=== PATIENT | male | born 1990 | race Caucasian/White ===

== ENCOUNTER 2020-12-12 16:02 | Emergency (ER) | payer SELFPAY ==
[2020-12-12 16:18] VITALS: BP 117/68; PULSE 119; RESP 18; TEMP 37.6; O2SAT 98; BMI 29.6
--- NOTE | 2020-12-12 16:48 | ED_ITS ---
HPI - Fever General: Chief Complaint: Fever Stated Complaint: FEVER/ACHES/HALLUCINATIONS Time Seen by Provider: 12/12/20 16:47 History of Present Illness: HPI Narrative: Patient is worried he might have tick fever. He said he has had multiple tick bites here recently. None of the ticks have been on more than 12 hours. Patient denies Covid but he says his mom is positive for Covid but he said he is not really been around her. Started with a severe headache last night and then fever and chills today no loss of taste or smell. MD elicited complaint: fever Onset (ago): hour(s) Context: sick contacts (Mother has Covid, recent tick bites) Associated symptoms: Reports chills, confusion (With fever), headache(s) and myalgias; Deny abdominal pain, chest pain, extremity pain, nasal congestion, nausea or vomiting Treatments prior to arrival fever: acetaminophen Review of Systems Const: Reports: fever(s) and chills Eyes: Denies: change in vision or blurry vision ENMT: Denies: throat pain or nasal congestion Card: Denies: chest pain or dyspnea on exertion Resp: Denies: dyspnea, productive cough or non-productive cough GI: Denies: abdominal pain, nausea or vomiting : Denies: difficulty urinating Musc: Reports: other (Muscle aches); Denies: extremity pain Skin/Breast: Denies: rash Neuro: Reports: headache(s) and confusion (With fever) Psych: Denies: anxiety or depression Wilmar/Lymph: Denies: easy bruising Physical Exam Const: COMMON NORMALS: no acute distress, average body habitus and patient oriented x3 HENMT: COMMON NORMALS: normocephalic HEAD & SCALP: normal to inspection and normocephalic FACE & SINUS: normal facial exam Eye: COMMON NORMALS: conjunctivae normal GENERAL EYE: appearance normal, both eyes and all related structures CONJUNCTIVA: Yes conjunctivae normal Neck/C-Spine: COMMON NORMALS: no JVD Chest: COMMONS NORMALS: normal inspection of the chest Resp: COMMON NORMALS: normal respiratory effort Cardio: COMMON NORMALS: no JVD and regular rhythm RATE: tachycardic RHYTHM: regular rhythm GI: COMMON NORMALS: Normal to inspection, nondistended, normoactive bowel sounds present Extremity: COMMON NORMALS: normal to inspection and full ROM Neuro: COMMON NORMALS: patient oriented x3 Course Vital Signs: Vital signs: Vital Signs Temperature 99.6 F 12/12/20 16:18 Pulse Rate 119 H 12/12/20 16:18 Respiratory Rate 18 12/12/20 16:18 Blood Pressure 117/68 12/12/20 16:18 Pulse Oximetry 98 12/12/20 16:18 MDM - Fever MDM Narrative: Medical decision making narrative: Patient notified he was tested positive for Covid. Patient self isolate follow-up if worsening symptoms with primary care or can return here. Lab Data: Labs: Lab Results 12/12/20 Range/Units 16:50 SARS-CoV-2 Ag (Rap id) Positive H (Negative) Discharge Plan Discharge Patient Disposition: Home Clinical Impression: Close exposure to 2018-nCoV Tick bite Qualifiers: Encounter type: initial encounter Qualified Code(s): W57.XXXA - Bitten or stung by nonvenomous insect and other nonvenomous arthropods, initial encounter Condition: Stable Prescriptions: New doxycycline hyclate 100 mg capsule 100 mg PO BID 10 Days Qty: 20 RF: 0 Discharge Orders: Discharge ED (Routine); Ordered 12/12/20 Ordered By: Messi Cam Discharge Diet: Usual diet Discharge Activity: Increase activity as tolerated Patient Instructions: Tick Bite (ED), Viral Syndrome (ED) Activity Restrictions/Additional Instructions: Follow-up with medical provider as directed. Take medications as prescribed. Return to the ER or your medical provider if condition worsens. Please read and understand discharge instructions. If any questions ask please. Coding Level of Care Code ED Tissue Recovery Technician for Eliseo Fwmarcio Exam Comprehensive
[2020-12-12] MEDS: doxycycline 100 mg Tablet PO (17:07)
[2020-12-12] MEDS: ketorolac 10 mg Tablet PO (17:07)
[2020-12-12 17:14] LABS: SARS Covid-2 Antigen Positive (Negative)
[2020-12-15 09:22] LABS: Lyme AB Screen <0.90 index
[2020-12-16 17:36] LABS: E. Chaffeensis AB IGG <1:64; E. Chaffeensis AB IGM <1:20; RMSF IGG NOT DETECTED; RMSF IGM NOT DETECTED
== END 2020-12-12 17:28 | disposition home or self-care (01) ==
PROVIDERS: Emergency Provider Nurse Practitioner Family
DX: T14.8XXA Other injury of unspecified body region, initial encounter (principal); W57.XXXA Bitten or stung by nonvenomous insect and other nonvenomous arthropods, initial encounter; Z20.822 Contact with and (suspected) exposure to COVID-19
CPT/HCPCS: 86618; 86666; 86757; 87426; 99283

== ENCOUNTER 2023-11-03 16:46 | Emergency (ER) | payer BC, MEDICAID, SELFPAY ==
[2023-11-03 16:56] VITALS: BP 114/75; PULSE 95; RESP 17; TEMP 36.9; O2SAT 97; BMI 33.4
--- NOTE | 2023-11-03 17:00 | XRR_ITS ---
PROCEDURE INFORMATION: Exam: XR Right Hand Exam date and time: 11/03/2023 5:05 PM Age: 33 years old Clinical indication: Injury or trauma; Fall; Blunt trauma (contusions or hematomas); Hand; Right TECHNIQUE: Imaging protocol: Radiologic exam of the right hand. Views: 3 or more views. COMPARISON: CR ( EX, ) 11/03/2023 5:05 PM FINDINGS: Bones/joints: No evidence of fracture or subluxation. Radiocarpal articulation and carpal rows are grossly intact. No evidence of osseous erosion to suggest osteomyelitis. Soft tissues: Soft tissue edema of the wrist, particularly of the radial aspect of the wrist. XR/XR hand RT min 3V* [id number] IMPRESSION: 1. No evidence of fracture or subluxation.
--- NOTE | 2023-11-03 17:00 | XRR_ITS ---
PROCEDURE INFORMATION: Exam: XR Right Wrist Exam date and time: 11/03/2023 5:05 PM Age: 33 years old Clinical indication: Injury or trauma; Fall; Blunt trauma (contusions or hematomas); Wrist; Right TECHNIQUE: Imaging protocol: Radiologic exam of the right wrist. Views: 3 or more views. COMPARISON: CR ([facility], ) 11/03/2023 5:05 PM FINDINGS: Bones/joints: No evidence of fracture or subluxation. Radiocarpal articulation and carpal rows are grossly intact. Soft tissues: Soft tissue edema. XR/XR wrist RT min 3V* [id number] IMPRESSION: 1. Soft tissue edema without evidence of fracture or subluxation. If there is concern for ligamentous or tendon pathology, follow-up outpatient MRI may be helpful.
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
[2023-11-03] MEDS: amoxicillin-clav 875-125 mg Tablet 1 TAB PO (18:30)
[2023-11-03] MEDS: HYDROcodone-acetaminophen 5-325 mg Tablet 1 TAB PO (18:30)
[2023-11-03] MEDS: tetanus-dipt-pertussis 0.5 mL SDV IM (18:31)
== END 2023-11-03 18:47 | disposition home or self-care (01) ==
PROVIDERS: Emergency Provider Nurse Practitioner Family
DX: Z04.1 Encounter for examination and observation following transport accident (principal); S60.511A Abrasion of right hand, initial encounter; V86.95XA Unspecified occupant of 3- or 4- wheeled all-terrain vehicle (ATV) injured in nontraffic accident, initial encounter; Z23 Encounter for immunization
CPT/HCPCS: 73110; 73130; 90471; 90715; 99283